=== PATIENT | male | born 1990 | race Caucasian/White ===

== ENCOUNTER 2023-10-22 11:39 | Outpatient (CLI) | payer OTHER, SELFPAY ==
--- OUTSIDE RECORDS SUMMARY | 2023-10-22 11:41 | XMS_ITS | Clinical Summary ---
Author Organization [facility] Address [place], [place] [address] Care Team Providers Care Manager Auto Name Role Phone Dayo Mendiola MD Primary Care Provider [phone] Allergies No known active allergies Medications No known medications Active Problems No known active problems Immunizations Name Administration Dates Next Due AMB Influenza, IIV4 PF (=>6 mos Flulaval,Fluzone Fluarix)(Flu Clinic Only) 02/28/2019 Anthrax Vaccine 02/09/2019,09/15/2016,08/12/2016 COVID-19 vaccine (Moderna 100mcg/0.5mL) PF, MDV 05/08/2021,08/05/2020,06/20/2020 DTP 01/17/1995, 1,1989,07/19,1989 HIB PRP-T (ActHIB,Hiberix) 09/20/1990,04/12/1990 Hepatitis A (Adult) 08/13/2010,11/03/2009 Hepatitis B (Peds) 08/08/2001,01/21/2001, 001 Inactivated Polio Vaccine 10/28/2009 Influenza Virus, Unspecified 03/12/2021, 03/20/2020,02/28/2019,05/04,03/06/2017,04/15/2016,04/09/2015 ,02/26/2014,07/19/2013,03/09/2012,01/26,04/16/2010 Influenza, IIV4 03/11/2022,03/06/2017 Influenza, Live, Intranasal Laiv3 03/07/2009 MMR 01/17/1995,09/20/1990 Meningococcal Vaccine (Menactra) 10/28/2009,12/26 Polio (Oral Polio Vaccine,Unspecified) 0 01/17/1995,01/10/1991,1989,05/09 Td (Age >=7 Years) 11/08/2019,01/26/2004 Tdap, Unspecified 10/28/2009 Tuberculin (PPD) 10/31/2009 Typhoid (injectable) 02/09/2019,08/12/2016 Yellow Fever 06/06/2022 Family History Medical History Relation Name Comments Cancer-prostate Father Diabetes Father Hypertension Father Thyroid Disease Mother Relation Name Status Comments Father Mother Social History Tobacco Use Types Packs/Day Years Used Date Smoking Tobacco: Never Smokeless Tobacco: Current Chew Tobacco Cessation:Ready to Q uit: No; Counseling Given: Yes Comments:2 dips a day Alcohol Use Standard Drinks/Week Comments Yes 3 (1 standard drink = 0.6 oz pur e alcohol) 3 drinks per week PHQ-2 Answer Date Recorded PHQ-2 TOTAL SCORE 0 04/17/2022 Social Connections Answer Date Recorded Frequency of Communication with Friends and Fami ly Not on file 04/17/2022 Sex and Gender Information Value Date Recorded Sex Assigned at Not on file Gender Identity Not on file Sexual Orientation Not on file Obstetrics History Last Filed Vital Signs Vital Sign Reading Time Taken Comments Blood Pressure 118/75 06/06/2022 8:20 AM SHOE DESIGNER Pulse 68 06/06/2022 8:20 AM SHOE DESIGNER Temperature 36.6 ??C (97.9 ??F) 04/17/2022 1 0:49 AM SHOE DESIGNER Respiratory Rate - - Oxygen Saturation 98% 06/06/2022 8:20 AM SHOE DESIGNER Inhaled Oxygen Concentration - - Weight 94.2 kg (207 lb 11.2 oz) 06/06/2022 8:20 AM SHOE DESIGNER Height 184.5 cm (6' 0.64) 06/06/2022 8:20 AM CS T Body Mass Index 27.68 06/06/2022 8:20 AM SHOE DESIGNER Plan of Treatment Health Maintenance Due Date Last Done Comments COVID-19 vaccine series ( season) 2023 05/08/2021, 08/05/2020, 06/20/2020 Depression screening for age 12+ 04/17/2023 04/17/2022, 08/04/2016 BMI (ht and wt on same day) for age 18+ 06/06/2023 06/06/2022, 04/17/2022, 08/04/2016 Influenza for age 9-49 01/27/2024 2, 03/12/2021, 03/20/2020, Additional history exists Tetanus booster 11/07/2029 11/08/2019, 06/07/2009, 01/26/2004 Tdap Completed 10/28/2009 HIV for age 15-65 Completed 06/06/2022 Hepatitis C screening for age 18-79 Completed 06/06/2022 Pneumococcal series for age 6-64 Aged Out No longer eligible based on patient's age to complete this topic Procedures Procedure Name Priority Date/Time Associated Diagnosis Comments LC HIV-1/O/2, 4TH GENERATION Routine 06/06/2022 9:22 AM SHOE DESIGNER Screening for HIV (human immunodeficiency virus) LC HCV ANTIBODY RFX TO QUANT PCR Routine 06/06/2022 9:22 AM SHOE DESIGNER Need for hepatitis C screening test from Last 3 Months or Most Recently Relevant to Health Maintenance Results * LC HCV ANTIBODY RFX TO QUANT PCR (06/06/2022 9:22 AM SHOE DESIGNER) HCV Ab <0.1 0.0 - 0.9 s/co ratio 06/09/2022 4:07 PM SHOE DESIGNER [facility] Blood BLOOD SPECIMEN / Unknown Venipuncture / Unknown 06/06/2022 9:22 AM SHOE DESIGNER 06/06/2022 9:23 AM SHOE DESIGNER Narrative [facility] - 06/09/2022 4:07 PM SHOE DESIGNER Performed at: ??01 - Lab[address] ??[id number] General Production Manager: Lionel Thurman MD, Phone: ??[phone] Dayo Mendiola MD LAB[facility]ORY [facility] ([facility]) [address] [place] [address], * LC HIV-1/O/2, 4TH GENERATION (06/06/2022 9:22 AM SHOE DESIGNER) HIV Scr 4th Gen Non Reactive Non Reactive 06/09/2022 3:07 AM SHOE DESIGNER [facility] ([facility]) Comment: HIV Negative HIV-1/HIV-2 antibodies and HIV-1 p24 antigen were NOT detected. There is no laboratory evidence of HIV infection. Blood BLOOD SPECIMEN / Unknown Venipuncture / Unknown 06/06/2022 9:22 AM SHOE DESIGNER 06/06/2022 9:23 AM SHOE DESIGNER Narrative [facility] ([facility] - 06/09/2022 3:07 AM SHOE DESIGNER Performed at: ??01 - [address] ??[id number] General Production Manager: Lionel Thurman MD, Phone: ??[phone] Dayo Mendiola MD LABORATORY [facility] ([facility]) [address] [place] [address] from Last 3 Months or Most Recently Relevant to Health Maintenance Care Teams Manager Auto Relationship Specialty Start Date End Date Dayo Mendiola MD [address] [place] [address] PCP - General Family Practice 09/28/16
--- OUTSIDE RECORDS SUMMARY | 2023-10-22 11:42 | XMS_ITS | Continuity of Care Document ---
Author Name [facility] Organization [facility] Care Team Providers Care Cleaning Manager Name Role Phone [facility] Unavailable Unavailable Problems Combined list of problems from Department of Defense and Veterans Affairs facilities. It does not include entries that were removed or entered in error. Problem Status Onset Date Problem Type Date of Resolution Comments Source ASSESSMENT, POST-DEPLOYMENT, [place]UMENTED ON CA6279 Inactive 05/14/2019 Condition DoD Circadian rhythm sleep disorder, unspecified type Active 11/26/2016 Condition DoD visit for: services flight physical Active Condition DoD visit for: administrative purpose Inactive Condition DoD joint pain, localized in the knee Active Condition DoD visit for: services physical accession Active Condition DoD Allergies, Adverse Reactions, Alerts Combined list of allergies from Department of Defense and Veterans Affairs facilities. It does not include entries that were removed or entered in error. Substance Category Reaction Severity Reaction type Status Date Reported Comments Source No Known Allergies Drug allergy (disorder) active 07/24/[address] [place] [address] ([facility] Immunizations Combined list of available immunizations from the Department of Defense and Veterans Affairs facilities. Immunization Series Date Given Administered By Site Reaction Lot Number CVX Code Drug Experience Design Director Status Comments Source COVID Vaccine Moderna 2020 [id number] complet ed COVID Vaccine Moderna 05/08/21 Given Ambulat ory Pharmac y influenza, injectable, quadrivalent 2020 [id number] 158 Seqirus complet ed influenza , injectabl e, quadrival ent 03/12/21 Given Ambulat ory Pharmac y COVID Vaccine Moderna 2020 [id number] complet ed COVID Vaccine Moderna 08/05/20 Given Ambulat ory Pharmac y SARS-COV-2 (COVID-19) vaccine, mRNA, spike protein, LNP, preservative free, 100 mcg or 50 mcg dose 2 2020 [id number] 207 Moderna [employer] (MOD) complet ed SARS-COV- 2 (COVID-19 ) vaccine, mRNA, spike protein, LNP, preservat errol free, 100 mcg or 50 mcg dose DoD COVID Vaccine Moderna 2020 [id number] complet ed COVID Vaccine Moderna 06/20/20 Given Ambulat ory Pharmac y SARS-COV-2 (COVID-19) vaccine, mRNA, spike protein, LNP, preservative free, 100 mcg or 50 mcg dose 1 2020 [id number] 207 Moderna [employer] (MOD) complet ed SARS-COV- 2 (COVID-19 ) vaccine, mRNA, spike protein, LNP, preservat errol free, 100 mcg or 50 mcg dose DoD Influenza, inj, MDCK, quadrivalent- pf 2019 [id number] Seqirus complet ed Influenza , inj, MDCK, quadrival ent-pf 03/20/20 Given Ambulat ory Pharmac y Influenza, injectable, Madin Ronda Canine Kidney, preservative free, quadrivalent 1 2019 [id number] 171 Seqirus (SEQ) comple t ed Influenza , injectabl e, Madin Ronda Canine Kidney, preservat errol free, quadrival ent DoD tetanus-dipht h toxoids (Td) adult/adol 2019 [id number] sanofi pasteur complet ed tetanus-d iphth toxoids (Td) adult/ado l 11/08/19 Given Ambulat ory Pharmac y tetanus and diphtheria toxoids, adsorbed, preservative free, for adult use (2 Lf of tetanus toxoid and 2 Lf of diphtheria toxoid) 2 2019 [id number] 09 Sanofi Pasteur (PMC) complet ed tetanus and diphtheri a toxoids, adsorbed, preservat errol free, for adult use (2 Lf of tetanus toxoid and 2 Lf of diphtheri a toxoid) DoD influenza, seasonal, injectable 2018 [id number] 141 ID Biomedical comple t ed influenza , seasonal, injectabl e 02/28/19 Given Ambulat ory Pharmac y Influenza, seasonal, injectable 1 2018 [id number] 141 (IDB) complet ed Influenza , seasonal, injectabl e DoD typhoid Vi capsular polysaccharid e vac 2018 [id number] sanofi pasteur complet ed typhoid Vi capsular polysacch aride vac 02/09/19 Given Ambulat ory Pharmac y anthrax vaccine 2018 [id number] 24 Emergent Biosolutions complet ed anthrax vaccine 02/09/19 Given Ambulat ory Pharmac y anthrax vaccine 3 2018 [id number] 24 Emergent [employer] [place] ([facility]) complet ed anthrax vaccine DoD typhoid Vi capsular polysaccharid e vaccine 1 2018 [id number] 101 Sanofi Pasteur (PMC) complet ed typhoid Vi capsular polysacch aride vaccine DoD influenza, injectable, quadrivalent- pf 2017 [id number] 150 GlaxoSmithKli ne complet ed influenza , injectabl e, quadrival ent-pf 05/04/18 Given Ambulat ory Pharmac y Influenza, injectable, quadrivalent, preservative free 10 2017 [id number] 150 Smithine (SKB) complet ed Influenza , injectabl e, quadrival ent, preservat errol free DoD influenza, seasonal, injectable 2016 [id number] 141 ID Biomedical comple t ed influenza , seasonal, injectabl e 03/06/17 Given Ambulat ory Pharmac y Influenza, seasonal, injectable 1 2016 [id number] 141 (IDB) complet ed Influenza , seasonal, injectabl e DoD anthrax vaccine 2016 [id number] Emergent Biosolutions complet ed anthrax vaccine 09/15/16 Given Ambulat ory Pharmac y anthrax vaccine 2 2016 [id number] 24 [employer]gent [employer] [place] ([facility]) complet ed anthrax vaccine DoD typhoid Vi capsular polysaccharid e vac 2016 [id number] 101 sanofi pasteur complet ed typhoid Vi capsular polysacch aride vac 08/12/16 Given Ambulat ory Pharmac y anthrax vaccine 2016 [id number] 24 Emergent [employer]olutions complet ed anthrax vaccine 08/12/16 Given Ambulat ory Pharmac y anthrax vaccine 1 2016 [id number] 24 Emergent [employer] [place] ([facility]) complet ed anthrax vaccine DoD typhoid Vi capsular polysaccharid e vaccine 1 2016 [id number] 101 Sanofi Pasteur (PMC) complet ed typhoid Vi capsular polysacch aride vaccine DoD influenza, seasonal, injectable-pf 2015 [id number] 140 Seqirus complet ed influenza , seasonal, injectabl e-pf 04/15/16 Given Ambulat ory Pharmac y Influenza, seasonal, injectable, preservative free 8 2015 [id number] 140 Seqirus (SEQ) comple t ed Influenza , seasonal, injectabl e, preservat errol free DoD influenza, live, intranasal,qu adrivalent 2014 [id number] 149 [facility] t ed influenza , live, intranasa l,quadriv alent 04/09/15 Given Ambulat ory Pharmac y influenza, live, intranasal, quadrivalent 7 2014 [id number] 149 MedImmune, Inc. (MED) complet ed influenza , live, intranasa l, quadrival ent DoD influenza, live, intranasal,qu adrivalent 2013 [id number] 149 Medimmune Inc [facility] t ed influenza , live, intranasa l,quadriv alent 02/26/14 Given Ambulat ory Pharmac y influenza, live, intranasal, quadrivalent 6 2013 [id number] 149 MedImmFrameBlast, Inc. (MED) complet ed influenza , live, intranasa l, quadrival ent DoD Influenza, injectable, MDCK-pf 2013 [id number] 153 Novartis Pharmaceutica ls complet ed Influenza , injectabl e, MDCK-pf 07/19/13 Given Ambulat ory Pharmac y Influenza, injectable, Madin Harvard Canine Kidney, preservative free 5 2013 [id number] 153 Novartis Pharmaceutica l Nitin. (NOV) complet ed Influenza , injectabl e, Madin Ronda Canine Kidney, preservat errol free DoD measles virus vaccine 0 2012 05 () Not Given measles virus vaccine [facility] rubella virus vaccine 0 2012 06 () Not Given rubella virus vaccine DoD influenza, seasonal, injectable-pf 2011 [id number] 140 CSL Behring complet ed influenza , seasonal, injectabl e-pf 03/09/12 Given Ambulat ory Pharmac y Influenza, seasonal, injectable, preservative free 4 2011 [id number] 140 CSAblexisapWEMS, Inc. (CSL) complet ed Influenza , seasonal, injectabl e, preservat errol free DoD influenza, seasonal, injectable 2010 [id number] 141 CSL Behring complet ed influenza , seasonal, injectabl e 02/12/11 Given Ambulat ory Pharmac y Influenza, seasonal, injectable 1 2010 [id number] 1A 141 CS LiftDNAherapWEMS, Inc. (CSL) complet ed Influenza , seasonal, injectabl e DoD hepatitis A adult vaccine 2010 [id number] 2AA 52 GlaxoSmithKli ne complet ed hepatitis A adult vaccine 08/13/10 Given Ambulat ory Pharmac y hepatitis A vaccine, adult dosage 2 2010 [id number] 2AA 52 Smithine (SKB) complet ed hepatitis A vaccine, adult dosage DoD influenza virus vaccine,split 2009 [id number] 15 sanofi pasteur complet ed influenza virus vaccine,s plit 04/16/10 Given Ambulat ory Pharmac y influenza virus vaccine, split virus (incl. purified surface antigen)-reti red CODE 1 2009 [id number] 15 Sanofi Pasteur (PMC) complet ed influenza virus vaccine, split virus (incl. purified surface antigen)- retired CODE DoD hepatitis A adult vaccine 2009 [id number] 2AA 52 GlaxoSmithKli ne complet ed hepatitis A adult vaccine 11/03/09 Given Ambulat ory Pharmac y measles, mumps and rubella virus vaccine 1 2009 03 () Not Given measles, mumps and rubella virus vaccine DoD varicella virus vaccine 1 2009 21 () Not Given varicella virus vaccine DoD hepatitis B vaccine, adult dosage 1 2009 43 () Not Given hepatitis B vaccine, adult dosage DoD hepatitis A vaccine, adult dosage 1 2009 [id number] 2AA 52 Smithine (SKB) complet ed hepatitis A vaccine, adult dosage DoD tuberculin purified protein derivative 2009 [id number] 96 sanofi pasteur complet ed tuberculi n purified protein derivativ e 10/31/09 Given Ambulat ory Pharmac y tetanus, diphtheria, acellular pertu is 2009 [id number] 1CA 115 GlaxoSmithKli ne complet ed tetanus, diphtheri a, acellular pertussis 10/28/09 Given Ambulat ory Pharmac y meningococcal A,C,Y,W-135 (MCV4P) 2009 [id number] 114 sanofi pasteur complet ed meningoco ccal A,C,Y,W-1 35 (MCV4P) 10/28/09 Given Ambulat ory Pharmac y poliovirus vaccine, inactivated 2009 [id number] 10 sanofi pasteur complet ed polioviru s vaccine, inactivat ed 10/28/09 Given Ambulat ory Pharmac y poliovirus vaccine, inactivated 1 2009 [id number] 10 Sanofi Pasteur ([facility]) complet ed polioviru s vaccine, inactivat ed DoD meningococcal polysaccharid e (groups A, C, Y and W-135) diphtheria toxoid conjugate vaccine (MCV4P) 1 2009 [id number] 114 Sanofi Pasteur (PMC) complet ed meningoco ccal polysacch aride (groups A, C, Y and W-135) diphtheri a toxoid conjugate vaccine (MCV4P) DoD tetanus toxoid, reduced diphtheria toxoid, and acellular pertu is vaccine, adsorbed 1 2009 [id number] 1CA 115 [facility] (SKB) complet ed tetanus toxoid, reduced diphtheri a toxoid, and acellular pertussis vaccine, adsorbed DoD Novel influenza-H1N 1-09, injectable 2009 [id number] 1A 127 Novartis Pharmaceutica ls complet ed Novel influenza -B7A0-65, injectabl e 06/20/09 Given Ambulat ory Pharmac y Novel influenza-H1N 1-09, injectable 1 2009 [id number] 1A 127 Novartis Pharmaceutica l Nitin. (NOV) complet ed Novel influenza -Q6R0-86, injectabl e DoD influenza virus vaccine, live 2008 [id number] 111 Medimmune Inc comple t ed influenza virus vaccine, live 03/07/09 Given Ambulat ory Pharmac y influenza virus vaccine, live, attenuated, for intranasal use 1 2008 [id number] 111 MedImmune, Inc. (MED) complet ed influenza virus vaccine, live, attenuate d, for intranasa l use DoD measles/mumps /rubella virus vaccine 1994 TRANSCR IBED 03 complet ed measles/m umps/rube lla virus vaccine 01/17/95 Given Ambulat ory Pharmac y measles, mumps and rubella virus vaccine 3 1994 03 Transcribed (TRS) complet ed measles, mumps and rubella virus vaccine DoD measles/mumps /rubella virus vaccine 1990 TRANSCR IBED 03 complet ed measles/m umps/rube lla virus vaccine 09/20/90 Given Ambulat ory Pharmac y measles, mumps and rubella virus vaccine 2 1990 03 Transcribed (TRS) complet ed measles, mumps and rubella virus vaccine DoD Results Combined list of recent chemistry, hematology and other laboratory results from Department of Defense and Veterans Affairs, ranging from 15 months to all on record, depending upon the facility. Order Name Results Value Reference Range Date Interpretation Specimen Comments Source Infectio us Disease HIV-1/O/2 Non-Reac tive 1 ( 3 10:01 AM) 05/09 N Interpretiv e Data: INTERPRETAT ION: This method is a screening procedure for the detection of HIV p24 Antigen and Antibodies to HIV-1, including Group O, and/or HIV-2. NON-REACTIV E: HIV-1 antigen and HIV-1 / HIV-2 antibodies were not detected. No laboratory evidence of HIV infection. A negative test result does not exclude the possibility of exposure to or infection with HIV. HIV antibodies and/or p24 antigen may be undetectabl e in some stages of the infection and in some clinical conditions. If acute HIV infection is suspected, consider submitting another specimen to a reference laboratory for HIV-1 RNA. SCREEN REACTIVE - CONFIRMATIO N TO FOLLOW: Possible presence of HIV-1antibo dies, HIV-2 antibodies and/or HIV-1 p24 antigen. Specimen will reflex to the confirmatio n testing that fulfills the Center for Disease Control and Prevention' s HIV diagnostic algorithm. Refer to [facility] Lab Guide for additional information : [email or web address] x Testing performed by [facility] [place] Miscella neous Sendouts Repository Sample Received ( 3 10:01 AM) 05/09 N [facility] Pharm[facility] Post Deployme nt Specimen DoD Serum Repository RECEIVED 09/09 Performed by: [facility] B[facility] [id number] [place] [id number] SERUM Performed by: Epidemiolog y [facility] [address] [place] [phone] [employer] Encounters Combined list of: 1) Encounters from Department of Veterans Affairs facilities going back up to thelast 18 months. 2) Encounters from the Department of Defense facilities going back up to 280 months. Location Location Details Encounter Type Encounter Number Reason For Visit Attending Provider ADM Date DC Date Status Disposition Source [place] [facility] [place] [address](Opt ometry Clinic [facility]) OUTPATIENT [id number] ILENE DORAN 11/02 Released w[facility]o Limitations [facility] [address](O ptometr y Clinic BMT [facility]) [employer](Critical access hospital) OUTPATIENT [id number] knee pain ISHAAN GERMAIN 02/19 Released with Work/Duty Limitations [employer]([facility]) [employer]([facility]) OUTPATIENT [id number] Notes Entered by: MARKY CALLES 25 Jul 2013 1232 ------- ------- ------- ------- -- VIKASH Hitchcock 07/25 Released w/o Limitations [employer]([facility]) [facility]) OUTPATIENT [id number] RUBA VO MD 08/01 Released with Work/Duty Limitations [employer]([facility]) [facility](Opt ometry Clinic) OUTPATIENT [id number] eye exam (contac t lense) ALEXANDRA CHANG 08/19 Released w/o Limitations [employer](O ptometr y Clinic) [facility](Opt ometry Clinic) OUTPATIENT [id number] ALEXANDRA Melendez 08/29 Released w/o Limitations [employer](O ptometr y Clinic) [facility](Opt ometry Clinic) OUTPATIENT [id number] 1 mo. acsp ALEXANDRA Melendez 09/25 Released w/o Limitations [employer](O ptometr y Clinic) [facility]) OUTPATIENT [id number] Notes Entered by: MARKY CALLES 06 Oct 2013 0812 ------- ------- ------- ------- -- sick call MELINA THOMAS 10/06 Released with Work/Duty Limitations [facility] light Medic[facility]) [facility]) OUTPATIENT [id number] Notes Entered by: MARKY CALLES 08 Oct 2013 0744 ------- ------- ------- ------- -- sick call MELINA THOMAS 10/08 Released w/o Limitations [facility]) [facility]) OUTPATIENT [id number] Notes Entered by: MARKY CALLES 13 Oct 2013 0734 ------- ------- ------- ------- -- Sick MELINA Dean 10/13 Released w/o Limitations [facility]) [facility]) OUTPATIENT [id number] Notes Entered by: DANDRE HARRELL 30 Dec 2013 1228 ------- ------- ------- ------- -- Sick MELINA Dean 12/30 Sick at Home/Quarter s [facility]) [facility]) OUTPATIENT [id number] Notes Entered by: MARKY CALLES 01 Jan 2014 0821 ------- ------- ------- ------- -- RTFS MELINA THOMAS 01/01 Released w/o Limitations [facility]) [facility]) OUTPATIENT [id number] Notes Entered by: MARKY CALLES 02 Jan 2014 0829 ------- ------- ------- ------- -- RTFS MELINA THOMAS 01/02 Released w/o Limitations [employer]([facility] Medic[facility] e Clinic) [facility]) OUTPATIENT [id number] Notes Entered by: ROSALINO JAIN 06 May 2014 0813 ------- ------- ------- ------- -- Sick Call RUBA MELCHOR MD 05/06 Released with Work/Duty Limitations [facility](F light Medic[facility] e Clinic) [facility]) OUTPATIENT [id number] Notes Entered by: Lexy ESCAMILLA I 08 May 2014 1345 ------- ------- ------- ------- -- Sick Call RUBA MELCHOR MD 05/08 Released with Work/Duty Limitations [facility] light Medic[facility] e Clinic) [facility] Medical [facility]) OUTPATIENT [id number] Notes Entered by: KIAN GILL 11 May 2014 1218 ------- ------- ------- ------- -- RTFS RUBA MELCHOR MD 05/11 Released w/o Limitations [employer]([facility] light Medicin e Clinic) [facility]) OUTPATIENT [id number] CLIFTON ADRIAN 08/13 Released w/o Limitations [employer]([facility] Medic[facility] Clinic) [facility](Opt ometry Clinic) OUTPATIENT [id number] [facility] ALEXANDRA CHANG 09/16 Released w/o Limitations [employer](O ptometr y Clinic) [facility](Opt ometry Clinic) OUTPATIENT [id number] [facility] ALEXANDRA CHANG 09/23 Released w/o Limitations [employer](O ptometr y Clinic) [facility] Medical [facility]) OUTPATIENT [id number] Back pain ROSALINO GR 04/13 Released w/o Limitations [employer] [facility]) [employer] OUTPATIENT [id number] f/u back pain BERNIE CHADWICK 04/20 Released w/o Limitations [employer](F light Medic[facility] Clinic) [employer]) OUTPATIENT [id number] Follow up ROSALINO GR Leola 04/27 Released w/o Limitations [facility] Group(F light Medicin e Clinic) [employer] [place]) OUTPATIENT [id number] ABD pain NATHANIEL TURNER [place] 08/10 Released w/o Limitations [employer] Chantal dao [place]S ERE Medical [facility]) Theater Facility OUTPATIENT [id number] Theater Provider 11/26 Released w/o Limitations [place] [address](AFN G [address] Med Sq-PH) OUTPATIENT [id number] ILENE PLATA 04/14 Released w/o Limitations [facility] [place] [address](A FNG [address] Med Sq-PH) [place] [address](AFN G [address] Med Sq-FM) OUTPATIENT [id number] Notes Entered by: Alex ORDOÑEZ 15 Nov 2017 0855 ------- ------- ------- ------- -- ILENE RAZA 11/15 Released w/o Limitations [facility] [place] [address](A FNG [address] Med Sq-FM) [place] [address](AFN G [address] Med Sq-FM) OUTPATIENT [id number] Notes Entered by: WILLIAM FAJARDO 24 Jul 2018 1045 ------- ------- ------- ------- -- ILENE Ferrell 07/24 Released w/o Limitations [facility] [place] [address](A FNG [address] Med Sq-FM) [facility] OUTPATIENT [id number] Theater Provider 03/26 Released w/o Limitations [facility] OUTPATIENT [id number] Theater Provider 05/15 Released w/o Limitations Theater Facilit y [id number] [facility] Dental [id number] 12/30 [id number] MDG [id number] MDG Outpatient [id number] KYRA ESTEVESGALINDO 05/09 Discharge Disposition: Home or Self Care [id number] MDG Procedures Combined list of: 1) Procedures from Department of Veterans Affairs facilities [facility], not all VA non-surgical procedures are included; 2) All procedures from the Department of Defense facilities. Procedure Procedure Type Code Date Perfomer Comments Sourc e Ophthalmological Prior Patient Start Intermediate Level Care Ophthalmological Prior Patient Start Intermediate Level Care 015 ALEXANDRA CHANG Prescription And Fitting Bilateral Corneal Lenses (Not For Aphakia) Prescription And Fitting Bilateral Corneal Lenses (Not For Aphakia) [id number] 015 ALEXANDRA CHANG Spectacles Services Fitting Monofocal Except For Aphakia [facility]acles Services Fitting Monofocal Except For Aphakia 33266 015 ALEXANDRA CHANG Determination Of Refractive State Determination Of Refractive State [address] ALEXANDRA CHANG Ophthalmological Prior Patient Start Comprehensive Care Ophthalmological Prior Patient Start Comprehensive Care 90089 015 ALEXANDRA CHANG Visual Function Screening Visual Function Screening [id number] 015 CLIFTON MCKOY Threshold Audiogram (Pure Tone) Threshold Audiogram (Pure Tone) 39545 015 CLIFTON MCKOY Ophthalmological Prior Patient Start Intermediate Level Care Ophthalmological Prior Patient Start Intermediate Level Care 014 ALEXANDRA CHANG Ophthalmological Prior Patient Start Intermediate Level Care Ophthalmological Prior Patient Start Intermediate Level Care 014 ALEXANDRA CHANG Prescription And Fitting Bilateral Corneal Lenses (Not For Aphakia) Prescription And Fitting Bilateral Corneal Lenses (Not For Aphakia) 12813 014 ALEXANDRA CHANG Spectacles Services Fitting Monofocal Except For Aphakia Spectacles Services Fitting Monofocal Except For Aphakia 72834 014 ALEXANDRA CHANG Ophthalmological New Patient Start Comprehensive Care Ophthalmological New Patient Start Comprehensive Care 64807 ALEXANDRA CHANG Determination Of Refractive State Determination Of Refractive State [address]65 ALEXANDRA CHANG Extensive Color Vision Testing Extensive Color Vision Testing 31185 RUBA MELCHOR MD Screening Test Of Visual Acuity, Quantitative, Bilateral Screening Test Of Visual Acuity, Quantitative, Bilateral 44398 RUBA MELCHOR MD Threshold Audiogram (Pure Tone) Threshold Audiogram (Pure Tone) 48822 RUBA MELCHOR MD H-1 profile DoD [employer] Fitting Monofocal Except For Aphakia Spectacles Services Fitting Monofocal Except For Aphakia 27519 SHERWIN TORRES THERAPEUTIC, PROPHYLACTIC, OR DIAGNOSTIC INJECTION (SPECIFY SUBSTANCE OR DRUG); SUBCUTANEOUS OR INTRAMUSCULAR [facility] FITTING OF SPECTACLES, EXCEPT FOR APHAKIA; MONOFOCAL [facility] OPHTHALMOLOGICAL SERVICES: MEDICAL EXAMINATION AND EVALUATION, WITH INITIATION OR CONTINUATION OF DIAGNOSTIC AND TREATMENT PROGRAM; INTERMEDIATE, ESTABLISHED PATIENT DoD PRESCRIPTION OF OPTICAL AND PHYSICAL CHARACTERISTICS OF AND FITTING OF CONTACT LENS, WITH MEDICAL SUPERVISION OF ADAPTATION; CORNEAL LENS, BOTH EYES, EXCEPT FOR APHAKIA DoD PURE TONE AUDIOMETRY (THRESHOLD); AIR ONLY [facility] OPHTHALMOLOGICAL SERVICES: MEDICAL EXAMINATION AND EVALUATION, WITH INITIATION OR CONTINUATION OF DIAGNOSTIC AND TREATMENT PROGRAM; INTERMEDIATE, ESTABLISHED PATIENT [facility] OPHTHALMOLOGICAL SERVICES: MEDICAL EXAMINATION AND EVALUATION, WITH INITIATION OR CONTINUATION OF DIAGNOSTIC AND TREATMENT PROGRAM; INTERMEDIATE, ESTABLISHED PATIENT [facility] PRESCRIPTION OF OPTICAL AND PHYSICAL CHARACTERISTICS OF AND FITTING OF CONTACT LENS, WITH MEDICAL SUPERVISION OF ADAPTATION; CORNEAL LENS, BOTH EYES, EXCEPT FOR APHAKIA [facility] COLOR VISION EXAMINATION, EXTENDED, EG, ANOMALOSCOPE OR EQUIVALENT [facility] No data available for this section [facility] Social History Combined list of available smoking, tobacco, and other social history from [facility] facilities. Social History Type Response Date Comment Sour e This section is an empty social history section. [facility] Assessment and Plan Combined list of future care activities from [facility] facilities (e.g., assessment and plan notes, appointments, orders, and referrals). Additional future care activities may be listed in the Plan of Care section. Result Assessment and Plan Date Source Assessment and Plan No data available for this section 10/22/2023 Ambulatory Pharmacy Functional Status Combined list of recent functional and cognitive assessments recorded at [facility] Functional [place] Measurement (FIM) Scale: 1 = Total Assistance (Subject = 0% +), 2 = Maximal Assistance (Subject = 25% +), 3 = Moderate Assistance (Subject = 50% +), 4 = Minimal Assistance (Subject = 75% +), 5 = Supervision, 6 = Modified [place] (Device), 7 = Complete [place] (Timely, Safely). Assessment Date/Time Source Assessment Type Assessment Skill Assessment Score Assessment Details No data available for this section
== END 2023-10-22 11:40 | disposition home or self-care (01) ==
LOC: NFLDUCREF 11:40
PROVIDERS: PCP Nurse Practitioner Family; Visit Provider Nurse Practitioner Family
DX: S80.262A Insect bite (nonvenomous), left knee, initial encounter (principal); W57.XXXA Bitten or stung by nonvenomous insect and other nonvenomous arthropods, initial encounter
CPT/HCPCS: 86618